=== PATIENT | female | born 1950 | race Caucasian/White ===

== ENCOUNTER 2023-08-26 13:41 | Inpatient (IN) ==
[2023-08-26] MEDS: Acetaminophen IV 1 GM/100ML 1,000 MG/100 ML BAG IV ONE (15:54)
[2023-08-26 16:15] LABS: ABS Lymphocytes 1.1 10^3/uL (1.0-4.8); ABS Monocytes 0.6 10^3/uL (0.0-0.9); ABS Neutrophils 5.2 10^3/uL (1.5-7.6); ABS Nucleated RBC 0.01 10^3/ul; Eosinophil % 0.1 %; Hemoglobin 13.6 g/dL (11.5-14.3); Lymphocyte % 16.3 %; Mean Corpuscular Hemoglobin 30.9 pg (27-33); Mean Corpuscular Volume 90.8 fL (80-97); Mean Platelet Volume 7.5 fL (7.5-11.2); Nucleated Red Blood Cells % 0.1 %/100WBC (0.0-0.8); Platelet Count 286 10^3/uL (150-450); Red Cell Distribution Width 13.8 % (12-17)
[2023-08-26 16:49] LABS: Activated Partial Thrombo Time 28.3 seconds (26.0-38.0); INR 1.01 (0.83-1.13)
[2023-08-26 17:19] LABS: Albumin 3.6 g/dL (3.2-5.2); Albumin/Globulin Ratio 1.6 (1-3); Calcium 8.7 mg/dL (8.6-10.3); Creatinine, Serum 0.68 mg/dL (0.51-0.95); Globulin 2.3 g/dL (2-4); Magnesium 2.2 mg/dL (1.9-2.7); Potassium 4.2 mmol/L (3.5-5.0); Total Bilirubin 0.4 mg/dL (0.2-1.0); Total Protein 5.9 g/dL (6.4-8.9); eGFR CKD-EPI 91.3 (>60)
[2023-08-26 17:31] LABS: TSH Ultra Thyroid Stim Horm 0.91 mcIU/mL (0.34-5.60)
[2023-08-26] MEDS: Ondansetron 4 mg VIAL 2 MG/ML 2 ml VIAL IV ONE (17:33)
[2023-08-26] MEDS: Morphine 2 MG/ML SYRINGE IV ONE ×2 (17:34→19:11)
[2023-08-26] MEDS: Iodixanol (CONTRAST) 320 MG/ML 100 ML SDV IV ONE (17:54)
[2023-08-26 19:06] LABS: High Sensitivity Troponin 1 Hr 44 pg/mL (<15)
[2023-08-26] MEDS: Enoxaparin 40 MG/0.4 ML SYR SUBCUT SCH (21:48)
[2023-08-26] MEDS ORDERED: EPINEPHrine Anaphylaxis SYR CERTADOSE SYR KIT IM PRN (22:01)
[2023-08-26] MEDS: CMCS:Minocycline 50 mg CAP (NF) PO SCH (22:35)
[2023-08-26] MEDS: Morphine 2 MG/ML SYRINGE IV PRN (23:05)
[2023-08-26] MEDS: Carbidopa/Levodop 25/100 MG TAB PO ONE (23:25)
[2023-08-27 01:17] LABS: HDL Cholesterol 68.5 mg/dL
[2023-08-27] MEDS: Carbidopa/Levodop 25/100 MG TAB PO SCH (06:06)
[2023-08-27 07:08] LABS: ABS Lymphocytes 0.9 10^3/uL (1.0-4.8); ABS Monocytes 0.6 10^3/uL (0.0-0.9); ABS Neutrophils 5.7 10^3/uL (1.5-7.6); Eosinophil % 0.1 %; Hematocrit 37.8 % (35-45); Hemoglobin 12.8 g/dL (11.5-14.3); Lymphocyte % 12.8 %; Mean Corpuscular Hemoglobin 30.9 pg (27-33); Mean Corpuscular Hgb Conc 33.8 g/dL (31-36); Mean Corpuscular Volume 91.6 fL (80-97); Mean Platelet Volume 7.8 fL (7.5-11.2); Platelet Count 258 10^3/uL (150-450); Red Blood Count 4.13 10^6/uL (3.63-4.92); Red Cell Distribution Width 13.7 % (12-17); White Blood Count 7.3 10^3/uL (3.8-11.8)
[2023-08-27 07:24] LABS: Calcium 8.6 mg/dL (8.6-10.3); Creatinine, Serum 0.63 mg/dL (0.51-0.95); Magnesium 2.3 mg/dL (1.9-2.7); Potassium 4.3 mmol/L (3.5-5.0)
[2023-08-27] MEDS ORDERED: Sulfur Hexaflouride MICROSPHR 25 MG VIAL ONE ×2 (08:14→12:06)
[2023-08-27] MEDS: Cholecalciferol (VIT D3) 1,000 unit TAB PO SCH (13:08)
[2023-08-27] MEDS: Aspirin EC 81 mg TAB.EC (enteric coated) PO SCH (13:08)
[2023-08-27] MEDS: Carbidopa/Levodop CR 50/200 TAB.CR PO SCH (22:21)
[2023-08-28 05:51] LABS: ABS Basophils 0.1 10^3/uL (0.0-0.1); ABS Eosinophils 0.1 10^3/uL (0.0-0.5); ABS Lymphocytes 1.7 10^3/uL (1.0-4.8); ABS Monocytes 0.7 10^3/uL (0.0-0.9); ABS Neutrophils 4.5 10^3/uL (1.5-7.6); Eosinophil % 0.9 %; Hematocrit 36.2 % (35-45); Hemoglobin 12.2 g/dL (11.5-14.3); Lymphocyte % 24.6 %; Mean Corpuscular Hemoglobin 30.9 pg (27-33); Mean Corpuscular Hgb Conc 33.6 g/dL (31-36); Mean Platelet Volume 7.4 fL (7.5-11.2); Platelet Count 236 10^3/uL (150-450); Red Blood Count 3.94 10^6/uL (3.63-4.92); Red Cell Distribution Width 13.7 % (12-17); White Blood Count 7.1 10^3/uL (3.8-11.8)
[2023-08-28 06:24] LABS: Anion Gap 6 mmol/L (2-16); Blood Urea Nitrogen 23 mg/dL (6-24); CO2 Carbon Dioxide 28 mmol/L (22-32); Calcium 8.4 mg/dL (8.6-10.3); Chloride 105 mmol/L (101-111); Glucose 100 mg/dL (70-100); Magnesium 2.2 mg/dL (1.9-2.7); Potassium 4.3 mmol/L (3.5-5.0); Sodium 139 mmol/L (135-145); eGFR CKD-EPI 90.7 (>60)
[2023-08-28 08:12] LABS: C Reactive Protein 89.06 mg/L (<8.01)
[2023-08-28] MEDS: Polyethylene Glycol 3350 17 GM PACKET PO SCH (10:00)
[2023-08-28 10:03] LABS: Rheumatoid Factor < 10 IU/mL (<15)
[2023-08-28] MEDS: Lidocaine PATCH 4% TOPICAL ONE (10:32)
[2023-08-28] MEDS: Senna TAB 8.6 mg TAB PO SCH (10:33)
[2023-08-29 09:51] LABS: Urine Appearance Clear; Urine Bilirubin Negative (Negative); Urine Blood Trace (Negative); Urine Color Yellow; Urine Glucose Negative (Negative); Urine Ketones Negative (Negative); Urine Nitrite Negative (Negative); Urine Protein Negative (Negative); Urine Urobilinogen Negative (Negative); Urine pH 6.5 (5.0-8.0)
[2023-08-31] MEDS: Senna TAB 8.6 mg TAB PO SCH (11:06)
[2023-08-31 11:09] LABS: ABS Basophils 0.1 10^3/uL (0.0-0.1); ABS Eosinophils 0.1 10^3/uL (0.0-0.5); ABS Lymphocytes 1.3 10^3/uL (1.0-4.8); ABS Monocytes 0.5 10^3/uL (0.0-0.9); ABS Neutrophils 4.5 10^3/uL (1.5-7.6); Eosinophil % 1.2 %; Hematocrit 38.8 % (35-45); Hemoglobin 12.9 g/dL (11.5-14.3); Lymphocyte % 20.6 %; Mean Corpuscular Hemoglobin 30.4 pg (27-33); Mean Corpuscular Hgb Conc 33.3 g/dL (31-36); Mean Corpuscular Volume 91.3 fL (80-97); Mean Platelet Volume 7.4 fL (7.5-11.2); Nucleated Red Blood Cells % 0.1 %/100WBC (0.0-0.8); Platelet Count 273 10^3/uL (150-450); Red Blood Count 4.25 10^6/uL (3.63-4.92); Red Cell Distribution Width 13.8 % (12-17); White Blood Count 6.6 10^3/uL (3.8-11.8)
[2023-08-31 11:57] LABS: C Reactive Protein 23.12 mg/L (<8.01); Calcium 8.7 mg/dL (8.6-10.3); Creatinine, Serum 0.73 mg/dL (0.51-0.95); Magnesium 2.1 mg/dL (1.9-2.7); Potassium 3.8 mmol/L (3.5-5.0); eGFR CKD-EPI 86.2 (>60)
[2023-08-31 12:22] LABS: Erythrocyte Sed Rate 40 mm/Hr (0-29)
[2023-08-31] MEDS: Polyethylene Glycol 3350 17 GM PACKET PO SCH (12:28)
[2023-08-31 13:18] LABS: Rapid COVID-19 Molecular Undetected (Undetected)
[2023-08-31] MEDS: Lactulose 30 ml UDC PO ONE (14:37)
[2023-08-31] MEDS: Potassium Chlor 20 meq TAB.ER PO ONE (14:38)
[2023-09-01 10:48] VITALS: BP 150/77
== END 2023-09-01 14:25 | DRG 545 ==
LOC: ED 13:41 → EDHOLD 13:41 → SUATTDRO 20:01 → MEDTELE 23:56 → SUATTDRO 08-28 09:29 → MEDTELE 08-30 22:16
PROVIDERS: ADMIT Student in an Organized Health Care Education/Training Program; ATTEND Internal Medicine